=== PATIENT | male | born 1985 | race Caucasian/White ===

== ENCOUNTER 2019-10-13 10:21 | Emergency (ER) | payer OTHER, BC ==
[~2019-10-13] VITALS: Ht 177.8 cm; Wt 111.1 kg
[2019-10-13 10:45] VITALS: BP 14/57
--- NOTE | 2019-10-13 12:05 | NUR ---
PT AMBULATED TO ER BED 11
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
--- NOTE | 2019-10-13 12:11 | NUR ---
ERMD BEDSIDE EVALUATING PT
[2019-10-13] MEDS ORDERED: IBUPROFEN 800 MG TAB PO ONE (12:25)
--- NOTE | 2019-10-13 12:29 | NUR ---
PT RESTING IN BED, SIDE RAIL X1
[2019-10-13 14:09] VITALS: BP 14/57
--- NOTE | 2019-10-13 14:09 | NUR ---
Patient discharged with v/s stable. Written and verbal after care instructions given and explained. Patient alert, oriented and verbalized understanding of instructions. Ambulatory with steady gait. All questions addressed prior to discharge. ID band removed. Patient advised to follow up with PMD. Rx of MOTRIN,TRAMADOL given. Patient educated on indication of medication including possible reaction and side effects. Opportunity to ask questions provided and answered.
== END 2019-10-13 14:09 | disposition home or self-care (01) ==
LOC: MED 10:21
DX: S93.401A Sprain of unspecified ligament of right ankle, initial encounter (principal); S33.5XXA Sprain of ligaments of lumbar spine, initial encounter; V57.5XXA Driver of pick-up truck or van injured in collision with fixed or stationary object in traffic accident, initial encounter; Y93.89 Activity, other specified; Y92.89 Other specified places as the place of occurrence of the external cause; Y99.8 Other external cause status
CPT/HCPCS: 72040; 72100; 73610; 99284